=== PATIENT | male | born 1975 | race Two or more races ===

== ENCOUNTER 2017-12-05 14:07 | Emergency (ER) | payer MEDICARE, OTHER ==
[~2017-12-05] VITALS: Ht 175.3 cm; Wt 77.1 kg
[~2017-12-05 14:07] MED LIST: ADVAIR 100/501 PUFF1 INH
[2017-12-05 14:11] VITALS: BP 127/73
[2017-12-05] MEDS ORDERED: Solu-MEDROL 125mg Inj IVP ONE (15:00)
[2017-12-05] MEDS ORDERED: Ipratropium 0.02% Inh Soln 2.5ml UD HHN SCH (15:00)
[2017-12-05] MEDS ORDERED: Albuterol ud Inhalation HHN SCH (15:00)
[2017-12-05 15:09] LABS: EOSINOPHILS % (AUTO) 0.5 % (0.0-3.0); HEMATOCRIT 54.4 % (42.0-52.0); LYMPHOCYTES % (AUTO) 36.1 % (20.0-45.0); MEAN CORPUSCULAR VOLUME 91 FL (80-99); MONOCYTES % (AUTO) 11.9 % (1.0-10.0); NEUTROPHILS % (AUTO) 50.5 % (45.0-75.0); PLATELET COUNT 210 K/UL (150-450); RED BLOOD COUNT 5.98 M/UL (4.70-6.10); RED CELL DISTRIBUTION WIDTH 11.9 % (11.6-14.8); WHITE BLOOD COUNT 6.6 K/UL (4.8-10.8)
--- NOTE | 2017-12-05 15:20 | Diagnostic Imaging Report ---
Indication: Chest pain Technique: One view of the chest Comparison: none Findings: Lungs and pleural spaces are clear. Heart size is normal Impression: No acute process
[2017-12-05 15:23] LABS: HEMOGLOBIN 18.4 G/DL (14.2-18.0)
[2017-12-05 15:27] VITALS: BP 112/70
[2017-12-05 15:43] LABS: ANION GAP 8 mmol/L (5-15); BLOOD UREA NITROGEN 14 mg/dL (7-18); CALCIUM 9.9 MG/DL (8.5-10.1); CARBON DIOXIDE 27 MMOL/L (21-32); CHLORIDE 103 MMOL/L (98-107); CREATININE 1.4 MG/DL (0.55-1.30); SODIUM 138 MMOL/L (136-145)
[2017-12-05 15:55] LABS: ALANINE AMINOTRANSFERASE 76 U/L (12-78); ALBUMIN/GLOBULIN RATIO 1.2 (1.0-2.7); ALKALINE PHOSPHATASE 97 U/L (46-116); ASPARTATE AMINO TRANSFERASE 32 U/L (15-37); BILIRUBIN,TOTAL 0.4 MG/DL (0.2-1.0); CKMB 0.9 NG/ML (0.0-3.6); CREATINE KINASE 132 U/L (26-308)
[2017-12-05 15:59] VITALS: BP 112/70
[2017-12-05] MEDS ORDERED: ALBUTEROL2.5 MG/3 M HHN (16:15)
[2017-12-05] MEDS ORDERED: ALBUTEROL SULF8.5 GM INH (16:15)
[2017-12-05] MEDS ORDERED: COMPACT COMPRE1 EACH MC (16:15)
[2017-12-05] MEDS ORDERED: PREDNISONE20 MG ORAL (16:15)
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
--- NOTE | 2017-12-06 15:55 | Cardiology Report ---
APPROVED REPORT EKG Measurement Heart [id number] CO 150P67 [id number] Normal sinus rhythm T wave abnormality, consider inferolateral ischemia Abnormal ECG
== END 2017-12-05 16:29 | disposition home or self-care (01) ==
LOC: EDBD 14:07 → EMR 14:34
DX: J45.901 Unspecified asthma with (acute) exacerbation (principal); Z86.69 Personal history of other diseases of the nervous system and sense organs
CPT/HCPCS: 36415; 71045; 80053; 80307; 82550; 82553; 83880; 84484; 85025; 93005; 94640; 96374; 99284; J2930